=== PATIENT | male | born 1980 | race Caucasian/White ===

== ENCOUNTER 2020-03-25 17:09 | Emergency (ER) | payer BC, OTHER ==
[~2020-03-25] VITALS: Ht 185.4 cm; Wt 85.0 kg
[2020-03-25] MEDS ORDERED: HYDROmorphone 2 MG/ML, 1ML IM ONE ×2 (17:30→19:00)
[2020-03-25] MEDS ORDERED: ONDANSETRON ODT 4 MG PO ONE (17:30)
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
[2020-03-25] MEDS ORDERED: ONDANSETRON ODT 4 MG ONE (17:42)
[2020-03-25] MEDS ORDERED: HYDROmorphone 1 MG/ML, 1ML INJ ONE ×2 (17:43→18:55)
--- NOTE | 2020-03-25 17:49 | NUR ---
PATIENT TO IMAGING.
[2020-03-25] MEDS ORDERED: LIDOCAINE-MPF 2% ,5ML ONE (18:54)
--- NOTE | 2020-03-25 19:02 | NUR ---
PATIENT MEDICATED PER emAR, PROSPECTING DRILLER HELPER AT BEDSIDE IRRIGATING LACERATION.
--- NOTE | 2020-03-25 19:14 | NUR ---
ERMD AT BEDSIDE FOR SUTURES.
--- NOTE | 2020-03-25 19:49 | NUR ---
PATIENT TO CT SCAN.
--- NOTE | 2020-03-25 20:05 | NUR ---
PATIENT BACK IN ROOM, LAYING IN GURNEY WATCHING TV, SIGNIFICANT OTHER AT BEDSIDE, SONIYA, PATIENT STATES HE HAS NO PAIN AT THIS TIME, WAITING FOR MRI RESULTS, CALL LIGHT WITHIN REACH.
[2020-03-25] MEDS ORDERED: HYDROcodone/APAP 5/325 TABLET PO ONE (22:30)
[2020-03-25 22:38] VITALS: BP 119/72
[2020-03-25] MEDS ORDERED: HYDROcodone/APAP 5/325 TABLET ONE (22:41)
--- NOTE | 2020-03-25 22:46 | NUR ---
Patient given discharge instructions and prescriptions and they have confirmed that they understand the instructions. Controlled substance contract signed. Patient stable and ambulatory with use of crutches from ED with significant other.
== END 2020-03-25 22:47 | disposition home or self-care (01) ==
LOC: ED 22:19
DX: S92.315B Nondisplaced fracture of first metatarsal bone, left foot, initial encounter for open fracture (principal); S92.335B Nondisplaced fracture of third metatarsal bone, left foot, initial encounter for open fracture; S91.312A Laceration without foreign body, left foot, initial encounter; S30.0XXA Contusion of lower back and pelvis, initial encounter; S50.812A Abrasion of left forearm, initial encounter; F17.210 Nicotine dependence, cigarettes, uncomplicated; Z88.5 Allergy status to narcotic agent; Z88.2 Allergy status to sulfonamides; W18.30XA Fall on same level, unspecified, initial encounter; Y93.89 Activity, other specified; Y92.328 Other athletic field as the place of occurrence of the external cause; Y99.8 Other external cause status
CPT/HCPCS: 12042; 72110; 72220; 73502; 73610; 73630; 73700; 96372; 99284; J1170; Q0162

== ENCOUNTER 2020-08-22 17:08 | Emergency (ER) | payer BC ==
[~2020-08-22] VITALS: Ht 185.4 cm; Wt 78.8 kg
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
[2020-08-22 17:51] VITALS: BP 132/85
--- NOTE | 2020-08-22 18:14 | NUR ---
ERMD AND PSYCH COMMERCIAL PRODUCER AT BEDSIDE FOR EVAL
--- NOTE | 2020-08-22 18:53 | NUR ---
report given to meg albarran
== END 2020-08-22 18:56 | disposition home or self-care (01) ==
LOC: ED 18:06
DX: F15.10 Other stimulant abuse, uncomplicated (principal); F41.9 Anxiety disorder, unspecified; F90.9 Attention-deficit hyperactivity disorder, unspecified type
CPT/HCPCS: 99281